=== PATIENT | female | born 1980 | race American Indian/Alaskan Native ===

== ENCOUNTER 2018-12-17 10:26 | Emergency (ER) | payer OTHER ==
--- NOTE | 2018-12-17 11:20 | Emergency Department Report ---
ED General Adult HPI - General Chief complaint: High BP Stated complaint: HIGH BP/CHILLS Time Seen by Provider: 12/17/18 11:08 Source: patient Mode of arrival: Ambulatory Limitations: No Limitations - History of Present Illness Initial comments: 38-year-old female with history of hypertension presents to ED with elevated blood pressure since yesterday. Patient states she normally takes her blood pressure daily, reports it is usually 140s/80s. Currently takes valsartan and hydrochlorothiazide, states that she has been compliant with her medications. Patient states today and yesterday, her blood pressure was 180s/100s when she measured it. Patient reports also feeling hot and flushed. Denies any pain. Denies cough, nausea, vomiting, urinary symptoms. -: days(s) (2) Consistency: intermittent Improves with: none Worsens with: none Associated Symptoms: fever/chills, malaise. denies: chest pain, cough, diaphoresis, headaches, nausea/vomiting, shortness of breath - Related Data Home Medications Medication Instructions Recorded Confirmed Last Taken Potassium Chloride [K-Dur] 10 meq PO QDAY 04/16/16 04/16/16 04/16/16 hydroCHLOROthiazide [HCTZ] 12.5 mg PO DAILY 04/16/16 04/16/16 04/16/16 Previous Rx's Medication Instructions Recorded Last Taken Type Ranitidine HCl [Zantac 150 MG TAB] 150 mg PO BID #40 tablet 04/16/16 Unknown Rx Sulfamethoxazole/Trimethoprim 1 each PO BID #6 tablet 12/17/18 Unknown Rx [Bactrim DS TAB] Allergies Allergy/AdvReac Type Severity Reaction Status Date / Time No Known Allergies Allergy Verified 12/17/18 10:28 ED Review of Systems ROS: Stated complaint: HIGH BP/CHILLS Other details as noted in HPI Comment: All other systems reviewed and negative Constitutional: fever, malaise ENT: denies: throat pain Respiratory: denies: cough, shortness of breath Cardiovascular: denies: chest pain Gastrointestinal: denies: abdominal pain, nausea, vomiting, diarrhea Genitourinary: denies: dysuria, frequency Musculoskeletal: denies: back pain Neurological: denies: headache ED Past Medical Hx - Past Medical History Hx Hypertension: Yes - Surgical History Additional Surgical History: csection x 2 - Social History Smoking Status: Never Smoker Substance Use Type: Alcohol - Medications Home Medications: Home Medications Medication Instructions Recorded Confirmed Last Taken Type Potassium Chloride [K-Dur] 10 meq PO QDAY 04/16/16 04/16/16 04/16/16 History Ranitidine HCl [Zantac 150 MG TAB] 150 mg PO BID #40 tablet 04/16/16 Unknown Rx hydroCHLOROthiazide [HCTZ] 12.5 mg PO DAILY 04/16/16 04/16/16 04/16/16 History Sulfamethoxazole/Trimethoprim 1 each PO BID #6 tablet 12/17/18 Unknown Rx [Bactrim DS TAB] ED Physical Exam - General Limitations: No Limitations General appearance: alert, in no apparent distress - Head Head exam: Present: atraumatic, normocephalic - Eye Eye exam: Present: normal appearance - ENT ENT exam: Present: mucous membranes moist - Neck Neck exam: Present: normal inspection - Respiratory Respiratory exam: Present: normal lung sounds bilaterally. Absent: respiratory distress - Cardiovascular Cardiovascular Exam: Present: normal rhythm, tachycardia - GI/Abdominal GI/Abdominal exam: Present: soft. Absent: distended, tenderness - Extremities Exam Extremities exam: Present: normal inspection - Neurological Exam Neurological exam: Present: alert, oriented X3 - Psychiatric Psychiatric exam: Present: normal affect, normal mood - Skin Skin exam: Present: warm, dry, intact, normal color. Absent: rash ED Course Vital Signs 12/17/18 12/17/18 10:30 11:34 Temperature 98.6 F Pulse Rate 124 H 102 H Respiratory 16 16 Rate Blood Pressure 159/111 Blood Pressure 159/99 [Right] O2 Sat by Pulse 100 100 Oximetry ED Medical Decision Making - Lab Data Result diagrams: 12/17/18 11:49 12/17/18 11:49 - Medical Decision Making - complaint of elevated BP and feeling warm and flushed - BP 150s/90s here in ED, no neuro deficits on exam - initially tachycardic at 124, but upon repeat vitals, tachycardia improved to 102 - pt afebrile here in ED - labs unremarkable, except for slight UTI on UA - TSH was sent due to tachycardia, hypertension, hot flash sx's, however was found to be normal - will prescribe bactrim for UTI - PCP follow-up advised - Differential Diagnosis essential hypertension, ARF, hyperthyroidism Critical care attestation.: If time is entered above; I have spent that time in minutes in the direct care of this critically ill patient, excluding procedure time. ED Disposition Clinical Impression: Hypertension, UTI (urinary tract infection) Disposition: TO HOME OR SELFCARE Is pt being admited?: No Condition: Stable Instructions: Urinary Tract Infection in Women (ED), Hypertension (ED) Prescriptions: Sulfamethoxazole/Trimethoprim [Bactrim DS TAB] 1 each PO BID #6 tablet Referrals: VINEET CAGE [Primary Care Provider] - 3-5 Days PRIMARY CAREMD [Referring] - 3-5 Days
[2018-12-17 11:55] VITALS: BP 159/99
[2018-12-17 11:57] LABS: Basophils % (Auto) 1.1 % (0.0-1.8); Eosinophils % (Auto) 0.9 % (0.0-4.3); Hematocrit 45.3 % (30.3-42.9); Hemoglobin 15.7 gm/dl (10.1-14.3); Lymphocytes # (Auto) 1.6 K/mm3 (1.2-5.4); Lymphocytes % (Auto) 50.4 % (13.4-35.0); Mean Corpuscular HGB Conc 35 % (30-34); Mean Corpuscular Volume 82 fl (79-97); Monocytes # (Auto) 0.3 K/mm3 (0.0-0.8); Monocytes % (Auto) 8.2 % (0.0-7.3); Platelet Count 270 K/mm3 (140-440); Red Blood Count 5.52 M/mm3 (3.65-5.03); Red Cell Distribution Width 13.3 % (13.2-15.2)
[2018-12-17 12:02] LABS: Bacteria,Urine 1+ /HPF (Negative); Bilirubin,Urine NEG (Negative); Blood,Urine LG (Negative); Color,Urine Yellow (Yellow); Mucus,Urine FEW /HPF; Urobilinogen,Urine < 2.0 mg/dL (<2.0)
[2018-12-17 12:21] LABS: BUN/Creatinine Ratio 13; Blood Urea Nitrogen 10 mg/dL (7-17); Calcium 9.6 mg/dL (8.4-10.2); Hemolysis Index 0
== END 2018-12-17 13:44 | disposition home or self-care (01) ==
LOC: ED 10:26
DX: I10 Essential (primary) hypertension (principal); N39.0 Urinary tract infection, site not specified
CPT/HCPCS: 36415; 80048; 81001; 84443; 84703; 85025; 87086; 99283